=== PATIENT | female | born 1970 | race Caucasian/White ===

== ENCOUNTER 2017-10-25 20:59 | Emergency (ER) | END 2017-10-26 03:28 | disposition home or self-care (01) ==

== ENCOUNTER 2019-04-04 12:12 | Emergency (ER) | payer SELFPAY ==
[~2019-04-04] VITALS: Ht 157.5 cm; Wt 76.7 kg
[~2019-04-04 12:12] MED LIST: HYDR-3980 PO; ONDA4TAB14 PO
[2019-04-04 12:25] VITALS: BP 135/76; PULSE 75; RESP 18; Ht 157.5 cm; Wt 76.7 kg
== END 2019-04-05 14:02 | disposition left against medical advice (07) ==
LOC: FTE 12:12
DX: Z53.21 Procedure and treatment not carried out due to patient leaving prior to being seen by health care provider (principal)